=== PATIENT | female | born 1970 | race Caucasian/White ===

== ENCOUNTER 2019-03-04 12:09 | Outpatient (CLI) | payer OTHER ==
--- NOTE | 2019-03-04 12:50 | RAD ---
EXAM: XR Lumbar Spine 2 Or 3 View PROVIDED CLINICAL HISTORY: Disability evaluation. COMPARISON: None FINDINGS: There is mild left convex rotoscoliosis of the lumbar spine. 5 nonrib-bearing lumbar-type vertebral b odies are noted. There is a mild compression fracture involving the superior endplate of the L2 vertebral body of uncertain age. No additional fracture is seen, and the remaining vertebral body hei ghts are within normal limits. There is grade 1 anterolisthesis of L4 on L5 measuring approximately 8 mm. Vascular calcifications are seen in the abdominal aorta and involving the iliac arteries. IMPRESSION: 1. Minimal compression fracture involving the superior endplate L2 vertebral body. The age of the fra cture is indeterminate based on radiographic evaluation. 2. Grade 1 anterolisthesis of L4 on L5.
== END 2019-03-04 12:10 | disposition home or self-care (01) ==
LOC: NAV RAD 12:09
PROVIDERS: ATTEND Family Medicine
DX: Z02.71 Encounter for disability determination (principal); M54.16 Radiculopathy, lumbar region; S32.029A Unspecified fracture of second lumbar vertebra, initial encounter for closed fracture; M43.16 Spondylolisthesis, lumbar region
CPT/HCPCS: 72100